=== PATIENT | male | born 1945 | race Caucasian/White ===

== ENCOUNTER 2017-12-22 18:04 | Emergency (ER) | payer MEDICARE, OTHER ==
[2017-12-22 18:34] LABS: EOSINOPHILS # (AUTO) 0.2 10^3/uL (0.0-0.7); EOSINOPHILS % (AUTO) 4.4 %; HGB - HEMOGLOBIN 13.7 g/dL (14.0-18.0); LYMPHOCYTES # (AUTO) 1.5 10^3/uL (1.5-3.5); MEAN CORPUSCULAR HEMOGLOBIN 30.8 pg (27.0-31.0); MEAN CORPUSCULAR VOLUME 93.6 fL (80.0-94.0); MEAN PLATELET VOLUME 6.5 fL (7.4-11.4); MONOCYTES # (AUTO) 0.5 10^3/uL (0.0-1.0); MONOCYTES % (AUTO) 11.7 %; NEUTROPHILS # (AUTO) 2.2 10^3/uL (1.5-6.6); NEUTROPHILS % (AUTO) 49.9 %; PLT - PLATELET COUNT 147 10^3/uL (130-450); RED BLOOD COUNT 4.44 10^6/uL (4.70-6.10); WHITE BLOOD COUNT 4.4 x10^3/uL (4.8-10.8)
--- NOTE | 2017-12-22 18:40 | ED Physician Documentation ---
History of Present Illness - Stated complaint Stated Complaint: ELEVATED POTASSIUM/ABN EKG - Chief complaint Chief Complaint: General - History obtained from History obtained from: Patient, Family - History of Present Illness Timing: Other (He has been feeling bad lately with increased hip and back pain and also some transitory on exertional chest pressure is and weird sensations. He was seen by his doctor who did an EKG and sent him for lab work, he was referred in because the lab work was notable for potassium of 6.1. He has no underlying kidney disease.) Review of Systems Constitutional: denies: Fever, Chills Cardiac: reports: Chest pain / pressure. denies: Palpitations, Pedal edema, Calf pain Respiratory: denies: Dyspnea : denies: Dysuria, Frequency, Hesitancy PD PAST MEDICAL HISTORY - Present Medications Home Medications: Ambulatory Orders Medication Instructions Recorded Confirmed Aspirin 81 mg PO 12/22/17 Atorvastatin [Lipitor] 0 mg 12/22/17 Gabapentin 600 mg PO 12/22/17 Glucosamine HCl 1,500 mg PO 12/22/17 Magnesium Oxide [Magnesium] 500 mg PO 12/22/17 Omeprazole 40 mg PO 12/22/17 Tamsulosin [Flomax] 0.4 mg PO DAILY 12/22/17 12/22/17 Ubidecarenone/Vitamin E Mixed 1 each PO 12/22/17 12/22/17 [[id number] E 100 mg-10 Unit Sfg] metFORMIN [Glucophage] 500 mg PO BIDWM 12/22/17 12/22/17 - Allergies Allergies/Adverse Reactions: Allergies Allergy/AdvReac Type Severity Reaction Status Date / Time No Known Drug Allergies Allergy Verified 12/22/17 18:19 PD ED PE NORMAL - Vitals Vital signs reviewed: Yes - General General: Alert and oriented X 3, No acute distress - HEENT HEENT: PERRL, EOMI - Neck Neck: Supple, no meningeal sign, No bony TTP - Cardiac Cardiac: RRR, No murmur - Respiratory Respiratory: No respiratory distress, Clear bilaterally - Abdomen Abdomen: Non tender - Extremities Extremities: No edema, No calf tenderness / cord - Neuro Neuro: Alert and oriented X 3 - Psych Psych: Normal mood, Normal affect Results - Vitals Vitals: Vital Signs - 24 hr 12/22/17 12/22/17 18:15 19:18 Temperature 36.7 C Heart Rate 56 L 56 L Respiratory 16 Rate Blood Pressure 152/87 H 126/81 H O2 Saturation 97 99 Oxygen O2 Source Room air - EKG (time done) 1813 Rate: Rate (enter#) (55) Rhythm: NSR [place]: Normal Intervals: Normal AR QRS: Normal Ischemia: Non specific changes (Q waves in 2 and 3) Compare to prior EKG: Unchanged from prior EKG (He has an EKG with him from 2011 and there is no significant change from prior.) - Labs Labs: Laboratory Tests 12/22/17 12/22/17 12/22/17 18:25 18:25 18:25 WBC 4.4 L RBC 4.44 L Hgb 13.7 L Hct 41.6 L MCV 93.6 MCH 30.8 MCHC 33.0 RDW 13.0 Plt Count 147 MPV 6.5 L Neut # 2.2 Lymph # 1.5 [place] # 0.5 Eos # 0.2 Baso # 0.0 Absolute Nucleated RBC 0.00 Nucleated RBC % 0.1 Sodium 137 Potassium 4.7 Chloride 106 Carbon Dioxide 23 Anion Gap 8.0 BUN 24 H Creatinine 1.1 Estimated GFR (MDRD) 66 L Glucose 123 H Calcium 9.0 Total Bilirubin 0.8 AST 27 ALT 21 Alkaline Phosphatase 51 Troponin I < 0.04 Total Protein 7.1 Albumin 4.4 Globulin 2.7 Albumin/Globulin Ratio 1.6 Lipase 64 H - Rads (name of study) 2v chest Radiology: EMP read contemporaneously (normal) PD MEDICAL DECISION MAKING - ED course ED course: His K is now normal, confirming pseudohyperkalemia. EKG unchanged from prior. Departure - Departure Disposition: 01 Home, Self Care Clinical Impression: Serum potassium elevated, Chest pressure Condition: Good Record reviewed to determine appropriate education?: Yes Comments: On recheck your potassium is normal confirming, "pseudohyperkalemia." Return if worse. Follow-up with your doctor and follow through with the referral for the aviation technician as previously arranged. Your blood pressure was elevated today on check into the emergency department. This does not mean that you have hypertension, it is a common phenomenon to come to the emergency department and have elevated blood pressure. I recommend that you see your primary care physician within the week to have it rechecked when you are feeling better. Discharge Date/Time: 12/22/17:19
[2017-12-22 18:52] LABS: ALBUMIN 4.4 g/dL (3.2-5.5); ALBUMIN/GLOBULIN RATIO 1.6 (1.0-2.2); BILIRUBIN,TOTAL 0.8 mg/dL (0.2-1.0); CREATININE 1.1 mg/dL (0.6-1.2); TOTAL PROTEIN 7.1 g/dL (6.7-8.2)
--- NOTE | 2017-12-22 18:57 | XRAY Preliminary Report ---
Exam: XR CHEST 2 VIEW X-RAY IMPRESSION: Normal 2-view chest radiography. [facility] SITE ID: [id number]
--- NOTE | 2017-12-22 18:58 | XRAY Report ---
EXAM: CHEST RADIOGRAPHY EXAM DATE: 12/22/2017 06:48 PM. CLINICAL HISTORY: Chest pain. COMPARISON: None. TECHNIQUE: 2 views. FINDINGS: Lungs/Pleura: No focal opacities evident. No pleural effusion. No pneumothorax. Normal volumes. Mediastinum: Heart and mediastinal contours are unremarkable. Other: None. IMPRESSION: Normal 2-view chest radiography. [facility] Referring Provider Line: [phone] SITE ID: [id number]
[2017-12-22 19:19] VITALS: BP 126/81
== END 2017-12-22 19:19 | disposition home or self-care (01) ==
LOC: ED 18:04
DX: R07.89 Other chest pain (principal); E87.5 Hyperkalemia; R03.0 Elevated blood-pressure reading, without diagnosis of hypertension; Z79.82 Long term (current) use of aspirin; Z79.84 Long term (current) use of oral hypoglycemic drugs
CPT/HCPCS: 36415; 71046; 80053; 83690; 84484; 85025; 93005; 99283; 99284

== ENCOUNTER 2018-01-12 12:48 | Day surgery (SDC) | payer MEDICARE, OTHER ==
[2018-01-12] MEDS ORDERED: MIDAZOLAM 2 MG/2 ML VIAL IVP ONE (14:27)
[2018-01-12] MEDS ORDERED: fentaNYL 250 MCG/5 ML VIAL IVP ONE (14:27)
[2018-01-12 15:26] VITALS: BP 91/54
== END 2018-01-12 12:49 | disposition home or self-care (01) ==
LOC: SDS 12:48
PROVIDERS: ATTEND Internal Medicine
PROC: 0DJD8ZZ Inspection of Lower Intestinal Tract, Via Natural or Artificial Opening Endoscopic (ICD-10-PCS; principal; 2018-01-12 14:00)
DX: Z12.11 Encounter for screening for malignant neoplasm of colon (principal); K57.30 Diverticulosis of large intestine without perforation or abscess without bleeding; K64.8 Other hemorrhoids; D17.5 Benign lipomatous neoplasm of intra-abdominal organs; E11.9 Type 2 diabetes mellitus without complications
CPT/HCPCS: G0121; J3010